=== PATIENT | female | born 1960 ===

== ENCOUNTER 2018-12-21 10:41 | Emergency (ER) | payer MEDICAID, OTHER ==
[2018-12-21 10:41] VITALS: BMI 26.6
[2018-12-21 10:57] VITALS: PULSE 76; RESP 18; TEMP 98.2; O2SAT 99
[2018-12-21] MEDS ORDERED: Albuterol 0.083% Inhal Sol (2.5 mg/3 mL) UD IH STA (11:27)
[2018-12-21] MEDS ORDERED: Albuterol 0.083% Inhal Sol (2.5 mg/3 mL) UD ONE (11:39)
--- NOTE | 2018-12-21 12:40 | C.PDOC ---
History Of Present Illness 58 y/o female comes in to ED complaining of a 5 day history of body aches, nasal congestion, productive cough with green mucus, headache, sore throat, and runny nose. Patient states that 2 days ago after she ate melon, she felt her lips and tongue become itchy. Patient reports taking claritin and the itching resolved. She denies any sick contacts, chest pain, SOB, abdominal pain, nausea, vomiting, or diarrhea. Time Seen by Provider: 12/21/18 10:50 Chief Complaint (Nursing): Cough, Cold, Congestion History Per: Patient History/Exam Limitations: no limitations Onset/Duration Of Symptoms: Days Current Symptoms Are (Timing): Still Present Past Medical History Reviewed: Historical Data, Nursing Documentation, Vital Signs Vital Signs: Last Vital Signs Temp 98.2 F 12/21/18 10:53 Pulse 76 12/21/18 10:53 Resp 18 12/21/18 10:53 BP Pulse Ox 99 12/21/18 10:53 - Medical History PMH: Asthma, Back Problems, HTN Denies: Chronic Kidney Disease - vocaltap Procedures INJECT/INFUSE NEC (09/18/13) Family History: States: No Known Family Hx - Social History Hx Tobacco Use: No Hx Alcohol Use: No Hx Substance Use: No - Immunization History Hx Tetanus Toxoid Vaccination: No Hx Influenza Vaccination: Yes Hx Pneumococcal Vaccination: Yes Review Of Systems Constitutional: Positive for: Other (Body aches). Negative for: Fever, Chills ENT: Positive for: Nose Discharge, Nose Congestion, Throat Pain (sore throat) Cardiovascular: Negative for: Chest Pain Respiratory: Positive for: Cough (productive), Sputum (green). Negative for: Shortness of Breath Gastrointestinal: Negative for: Nausea, Vomiting, Abdominal Pain, Diarrhea Neurological: Positive for: Headache Physical Exam - Physical Exam Appears: Non-toxic, No Acute Distress Skin: Warm, Dry Head: Atraumatic, Normacephalic Eye(s): bilateral: Normal Inspection Nose: Other (rhinorrhea) Oral Mucosa: Moist Throat: Erythema (mild), No Exudate, No Other (Swelling) Neck: Supple Cardiovascular: Rhythm Regular, No Murmur Respiratory: No Decreased Breath Sounds, No Rales, No Rhonchi, Wheezing (expiratory wheezing), Other (coughing intermittently) Extremity: Bilateral: Atraumatic, Normal Color And Temperature, Normal ROM Neurological/Psych: Oriented x3, Normal Speech ED Course And Treatment O2 Sat by Pulse Oximetry: 99 (RA) Pulse Ox Interpretation: Normal - Other Rad CXR X-Ray: Read By Radiologist Interpretation: FINDINGS: LUNGS: No active pulmonary disease. PLEURA: No significant pleural effusion identified. No pneumothorax apparent. CARDIOVASCULAR: No aortic atherosclerotic calcification present. Normal cardiac size. No pulmonary vascular congestion. OSSEOUS STRUCTURES: No significant abnormalities. VISUALIZED UPPER ABDOMEN: Normal. OTHER FINDINGS: None. IMPRESSION: No active disease. Progress Note: Chest XR ordered, showed no infiltrates. Patient was given albuterol, tessalon, and motrin. On re-evaluation, patient is feeling better and is in no acute distress. Patient will be discharged home. Disposition Counseled Patient/Family Regarding: Diagnosis, Need For Followup, Rx Given, Smo arely Cessation - Disposition Referrals: [facility] [Outside] Disposition: HOME/ ROUTINE Disposition Time: 12:35 Condition: STABLE Additional Instructions: FOLLOW UP WITH YOUR DOCTOR IN 1-2 DAYS USE MEDICATIONS DIRECTED RETURN TO EMERGENCY ROOM IF YOUR SYMPTOMS BECOME WORSE SEGUIR CON UGALDE MDICO EN 1-2 GUARDADO UTILICE MEDICAMENTOS CRIS SE DIRIGE VUELVA A LA ROSE DE EMERGENCIA SI STEVEN SNTOMAS SE HACEN PEOR Prescriptions: Albuterol HFA [Ventolin HFA 90 mcg/actuation (8 g)] 0.09 mg IH Q4 PRN #1 puff PRN Reason: Wheezing Benzonatate [Tessalon Perles] 100 mg PO BID PRN #15 sgl PRN Reason: Cough Ibuprofen [Motrin Tab] 600 mg PO Q6 PRN #30 tab PRN Reason: fever/pain Phenol/Glycerin [Chloraseptic Max [place]] 1 spray MM Q6 PRN #1 spray PRN Reason: THROAT PAIN Instructions: Upper Respiratory Infection (ED) Forms: SSN Funding (Bur[place]ian) Print Language: BELARUSIAN - Clinical Impression Clinical Impression: Upper respiratory infection, Viral disease - Scribe Statement The provider has reviewed the documentation as recorded by the Donal Middleton Provider Attestation: All medical record entries made by the Scribe were at my direction and personally dictated by me. I have reviewed the chart and agree that the record accurately reflects my personal performance of the history, physical exam, medical decision making, and the department course for this patient. I have also personally directed, reviewed, and agree with the discharge instructions and disposition.
--- NOTE | 2018-12-21 17:16 | RAD ---
Date of service: 12/21/2018 HISTORY: COUGH COMPARISON: Comparison is made with 06/19/2015 TECHNIQUE: Chest PA and lateral FINDINGS: LUNGS: No active pulmonary disease. PLEURA: No significant pleural effusion identified. No pneumothorax apparent. CARDIOVASCULAR: No aortic atherosclerotic calcification present. Normal cardiac size. No pulmonary vascular congestion. OSSEOUS STRUCTURES: No significant abnormalities. VISUALIZED UPPER ABDOMEN: Normal. OTHER FINDINGS: None. IMPRESSION: No active disease.
== END 2018-12-21 12:50 | disposition home or self-care (01) ==
LOC: C.ER 10:41
DX: J06.9 Acute upper respiratory infection, unspecified (principal); I10 Essential (primary) hypertension